=== PATIENT | female | born 1945 | race Caucasian/White ===

== ENCOUNTER 2019-12-10 01:45 | Day surgery (SDC) | payer OTHER, SELFPAY ==
[2019-12-09 15:11] VITALS: BMI 23.3
--- NOTE | ~2019-12-10 | XR_ITS ---
XR surgery orthopedic 12/10/2019 14:46 Indication: Intraoperative fixation of distal radial fracture Procedure: 2 fluoroscopic views of the left wrist. 16 seconds of fluoroscopy. Comparison: 12/04/2019 Findings: Status post intraoperative reduction of intra-articular distal radial fracture with ventral sideplate and multiple screws. Fracture fragments in near-anatomic alignment post reduction. There i s suggestion of widening of the scapholunate interval. Impression: 1: Near-anatomic alignment of intra-articular distal radial fracture status post internal fixation wi th sideplate and screws. 2: Ulnar styloid avulsion fracture. 3: Possible widening of the scapholunate interval, although not identified on previous wrist series. Reviewed, dictated and finalized at location A. CONDUCTOR Impression: 1: Near-anatomic alignment of intra-articular distal radial fracture status pos t internal fixation with sideplate and screws. 2: Ulnar styloid avulsion fracture. 3: Possible widening of the scapholunate interval, although not identified on previous wrist series.
--- NOTE | 2019-12-10 11:32 | WPDANESEPP ---
Anes - Eval Pre Procedure Procedure: Operation Date: 12/10/19 13:30 Proposed Procedures p Open Reduction Internal Fixation Left Wrist - Trev Vergara MD Date/Time: 12/10/19 11:32 Pre Op Diagnosis: Left Wrist Fx of carpal bone Patient Data Age: 74 Gender: F Height: 1.68 m Weight: 65.77 kg Allergies Allergy/AdvReac Type Severity Reaction Status Date / Time adhesive Allergy Mild Rash Verified 12/09/19 15:12 Sulfa (Sulfonamide Allergy Unknown Hives Verified 12/09/19 15:12 Antibiotics) Home Medications Medication Instructions Recorded Confirmed Type hydrocodone-acetaminophen 1 tablet PO Q6H PRN #20 tablet 12/04/19 12/09/19 Rx Patient hx anesthesia problems: none Family hx anesthesia problems: none [facility] Social History Social History Smoking status: Never smoker Second hand tobacco smoke exposure: No Alcohol intake: current Substance use: never Substance use type: does not use Additional living arrangements comments: Partner (Ethan Westfall) Additional occupation/education comments: Teacher Gender identity (if verbalized by the patient): Female Exam Day of Procedure 12/10/19 11:32
[2019-12-10] MEDS: LACTATED RINGERS 1,000 ML 30 ML IV CONT (12:45)
--- NOTE | 2019-12-10 12:45 | P.PNAN_ITS ---
Anes - Eval Final PreProcedure Day of Procedure 12/10/19 12:45 Patient weight: normal Heart: regular rate and rhythm Lungs: clear to auscultation and normal air movement Airway: Mallampati scale class II Neurological: alert and oriented Last oral intake: >/= 8 hours ASA classification: I Emergent: no Anesthetic plan: proceed Anesthesia type and monitoring: general GIVS Informed Consent: The patient's anesthetic plan and its attendant risks and be nefits were discussed with the patient/family/POA. Questions were solicited and answers provided to the satisfaction of the patient/family/POA.
[2019-12-10 13:02] VITALS: BP 146/64; PULSE 57; RESP 20; TEMP 36.6; O2SAT 100
--- NOTE | 2019-12-10 13:35 | WPDHPUPDATE1 ---
History and Physical Update Update Date/Time: 12/10/19 13:35 History and Physical has been reviewed, including an updated exam of the patient. There are NO changes in the patient's condition. Risks, benefits, and alternatives have been discussed and questions answered. Patient agrees to proceed with procedure.
[2019-12-10] MEDS: ceFAZolin 2 GM/D5W 50 ML 2 GM/50 ML BAG IVPB (13:40)
--- NOTE | 2019-12-10 13:40 | WPDANESPNB ---
Anes - Peripheral Nerve Block Date/Time: 12/10/19 13:40 I have discussed with the patient/family/POA the placement of a peripheral nerve block for post-operative pain management, including associated risks, benefits, complications, and side effects. Alternative methods of post-operative analgesia were detailed. Questions were solicited and answers provided to the satisfaction of the patient/family/POA. Time-Out: A pre-procedural Time-Out was completed immediately before starting the procedure and confirmed: Patient Identification, Site, Procedure, Patient Position and the Availability of Requisite Equipment. Clinical Indications: Acute post-operative pain management requested by the operative surgeon. Nerve Block Insertion Note Anes-nerve block: supraclavicular left Patient position: supine Skin prep: chlorhexidine Needle: 22 gauge, stimulating, insulated echogenic needle. Needle length: 80 mm Technique: ultrasound (in plane) Injectate: bupivacaine 0.5% with epi 5 mcg/ml (20cc) Observations: tolerated well Complications: none Procedure start time:: 1315 Procedure end time:: 1320
[2019-12-10 14:52] VITALS: BP 113/57; PULSE 66; RESP 18; O2SAT 94
[2019-12-10 15:22] VITALS: BP 109/48; PULSE 65; RESP 18
--- NOTE | 2019-12-10 15:24 | P.OP_ITS ---
Procedure Note - Detailed Date of procedure: 12/10/19 Pre-op diagnosis: Left Wrist Fx of carpal bone Extra-articular left distal radius fracture Post-op diagnosis: same Procedure performed: OR IF left distal radius fracture Description of procedure: The patient was identified and the proper side identified. In the preop holding area, the anesthesia team performed a left upper extremity block. She was taken back to the operating room, transferred to the or table positioning supine taking care to pad her torso and extremities. A nonsterile tourniquet was placed high on the left arm which was prepped and draped in the usual sterile fashion. The extremity was exsanguinated and tourniquet inflated to 200 mmHg remaining up for approximately 45 minutes. A volar longitudinal incision was made along the FCR tendon distally. The subcutaneous tissue was sharply dissected protecting neurovascular structures. The FCR tendon was released from its sheath and retracted ulnarly. This allowed for the deep fascia of the forearm to be divided longitudinally in line with the incision. Care was taken to protect the volar compartment structures as well as the radial nerve and radial vascular structures. The pronator quadratus was elevated off of the distal radius allowing for inspection of the fracture site. The fracture fragments were disimpacted and able to be realigned virtually anatomically with fluoroscopic assistance. They were secured in this position with a left short narrow plate from the DVR set. The plate was applied with fluoroscopic visualization to avoid penetration of the joint and to ensure optimal hardware placement. Once the plate was secure the overall construct was assessed fluoroscopically on the AP and lateral views. The virtually anatomic reduction was held very nicely. The construct was stable. The wound was irrigated with a copious amount of sterile antibiotic solution. Skin edges were reapproximated with 2-0 strata fix. Sterile dressing was applied. Tourniquet w as released. A well-padded short-arm volar wrist splint was fashioned. The procedure was well tolerated. There were no known intraoperative complications. Estimated blood loss was negligible. Anesthesia: MAC Surgeon: Trev Vergara MD Estimated blood loss (mL): 2 Tourniquet time (min): 45 Drains: No Packing: No Pathology: none sent Complications: No immediate complications Condition: stable Disposition: observation
[2019-12-10 15:52] VITALS: BP 120/67; PULSE 57; RESP 18
== END 2019-12-10 16:00 | disposition home or self-care (01) ==
PROVIDERS: PCP Internal Medicine; Visit Provider Orthopaedic Surgery
PROC: (CPT 25575; principal; 2019-12-10 13:30)
DX: S52.552A Other extraarticular fracture of lower end of left radius, initial encounter for closed fracture (principal); W19.XXXA Unspecified fall, initial encounter; G89.18 Other acute postprocedural pain; Z85.3 Personal history of malignant neoplasm of breast
CPT/HCPCS: 25607; 64415; 76000; C1713; J0690; J1100; J2250; J2405; J2704; J3010; J7120

== ENCOUNTER 2020-09-29 09:08 | Outpatient (NON) | payer OTHER, SELFPAY ==
[2020-09-29 21:00] LABS: SARS-CoV-2 RNA PCR Positive
== END 2020-09-29 09:09 ==
LOC: ANHCOVIDDT 09:09
PROVIDERS: PCP Family Medicine; Visit Provider Family Medicine
DX: U07.1 COVID-19 (principal)
CPT/HCPCS: 87635; C9803; U0003

== ENCOUNTER 2023-11-08 08:33 | Outpatient (CLI) | payer OTHER, SELFPAY ==
--- NOTE | ~2023-11-08 | XR_ITS ---
EXAMINATION: XR hip LT 2V w AP pelvis INDICATION: Left hip pain TECHNIQUE: AP view of the pelvis and two views of the left hip are obtained. COMPARISON: 11/27/2006 FINDINGS: Bone alignment is normal. There is no fracture. There is mild osteoarthritis of the hips. P hleboliths are noted in the pelvis. There is at least mild lower lumbar spondylosis. IMPRESSION: 1. Mild osteoarthritis of the hips. Reviewed, dictated and finalized at location B. TMENT COUNSELOR
--- NOTE | ~2023-11-08 | US_ITS ---
EXAMINATION: US abdomen limited DATE: 11/08/2023 09:05 INDICATION: Abnormal liver enzymes TECHNIQUE: Multiple grayscale and Doppler ultrasound images of the abdomen were obtained. COMPARISON: None available FINDINGS: The head, body, and tail of the pancreas are normal. The liver is normal with normal echoge nicity and echotexture. No surface nodularity. Normal hepatopetal flow in the main portal vein. The g allbladder is normal with no abnormal wall thickening, pericholecystic fluid or stones. The normal co mmon bile duct measures 4 mm. There was no sonographic Reyes sign. IMPRESSION: 1. Normal sonographic study of the gallbladder. Reviewed, dictated and finalized at location B. KSHAFT BALANCER
== END 2023-11-08 08:34 | disposition home or self-care (01) ==
PROVIDERS: PCP Family Medicine; Visit Provider Family Medicine
DX: M16.0 Bilateral primary osteoarthritis of hip (principal); R79.89 Other specified abnormal findings of blood chemistry
CPT/HCPCS: 73502; 76705

== ENCOUNTER 2024-07-14 08:50 | Outpatient (CLI) | payer OTHER, SELFPAY | END 2024-07-14 08:51 | disposition home or self-care (01) | LOC: ANHAUDIO 08:50 | PROVIDERS: PCP Family Medicine; Visit Provider Family Medicine | DX: H90.3 Sensorineural hearing loss, bilateral (principal) | CPT/HCPCS: 92557; 92567 ==